=== PATIENT | female | born 1960 | race African-American/Black ===

== ENCOUNTER 2020-08-29 14:19 | Inpatient (IN) | payer MEDICARE ==
[~2020-08-29 14:19] MED LIST: ALEVE220 MG PO; CLEOCIN300 MG PO; NEURONTIN400 MG PO; VITAMIN D5000 UNIT PO
[2020-08-29 17:07] LABS: BASOPHIL 0.5 % (0-2); EOSINOPHIL 1.6 % (0-5); HCT 38.4 % (37.0-47.0); HGB 12.2 g/dl (12.5-16.0); LYMPHOCYTE 31.3 % (15-48); MCH 28.4 pg (25.0-31.0); MCHC 31.8 g/dL (32.0-36.0); MCV 89.5 fL (78.0-100.0); MONOCYTE 7.6 % (0-12); MPV 12.7 fL (6.0-9.5); NEUTROPHIL 58.7 % (41-80); NRBC 0; PLT 147 K/uL (150-400); RBC 4.29 M/uL (4.20-5.40); RDW 15.5 % (11.5-14.0); WBC 6.2 K/uL (4.0-10.5)
[2020-08-29 17:18] LABS: BUN/CREAT RATIO (CALC) 24.7 RATIO; CREATININE 0.73 mg/dL (0.51-0.95); POTASSIUM 4.1 mmol/L (3.5-5.1)
[2020-08-29 20:33] LABS: INFLUENZA A NAA NEGATIVE (NEGATIVE)
[2020-08-29 20:37] LABS: CORONAVIRUS 2019 SARS-COV-2 POSITIVE (NEGATIVE)
[2020-08-29] MEDS ORDERED: XARELTO10 MG PO (21:02)
--- NOTE | 2020-08-29 22:26 | NUR ---
PT ARRIVED TO UNIT AT 2029, NO S/S DISTRESS NOTED, TELEMETRY STRIP: 0.12 0.08 HR 81
[2020-08-30 05:54] LABS: BASOPHIL 0.8 % (0-2); EOSINOPHIL 2.7 % (0-5); HCT 38.4 % (37.0-47.0); HGB 12.1 g/dl (12.5-16.0); LYMPHOCYTE 36.1 % (15-48); MCH 28.1 pg (25.0-31.0); MCHC 31.5 g/dL (32.0-36.0); MCV 89.3 fL (78.0-100.0); MONOCYTE 9.1 % (0-12); NEUTROPHIL 51.1 % (41-80); NRBC 0; PLT 140 K/uL (150-400); RDW 15.6 % (11.5-14.0); WBC 5.3 K/uL (4.0-10.5)
[2020-08-30 06:22] LABS: ALBUMIN 2.9 g/dL (3.4-5.0); BILIRUBIN - TOTAL 0.3 mg/dL (0.2-1.0); BUN/CREAT RATIO (CALC) 26.6 RATIO; CREATININE 0.64 mg/dL (0.51-0.95); POTASSIUM 4.1 mmol/L (3.5-5.1); TOTAL PROTEIN 6.9 g/dL (6.4-8.2)
--- NOTE | 2020-08-30 10:53 | NUR ---
08/30/20 Ms. Flores lives alone. She was independent in the home and community prior to admission. She works at [employer]. Ms. Flores has a rw (doesn't use) and 02 at 2 L which she uses prn. Will monitor for any dc planning needs.
--- NOTE | 2020-08-30 11:22 | NUR ---
Insurance submitted to [facility], tracking ID this date [id number] ref# [id number]
[2020-08-30] MEDS ORDERED: GABAPENTIN800 MG PO (18:34)
[2020-08-30] MEDS ORDERED: ELIQUIS5 MG PO (18:35)
[2020-08-31 06:13] LABS: BUN/CREAT RATIO (CALC) 23.9 RATIO; CREATININE 0.71 mg/dL (0.51-0.95)
[2020-08-31 06:22] LABS: BASOPHIL 0.5 % (0-2); EOSINOPHIL 1.7 % (0-5); HCT 35.4 % (37.0-47.0); HGB 11.3 g/dl (12.5-16.0); LYMPHOCYTE 31.1 % (15-48); MCH 28.4 pg (25.0-31.0); MCHC 31.9 g/dL (32.0-36.0); MCV 88.9 fL (78.0-100.0); MONOCYTE 8.4 % (0-12); MPV 13.1 fL (6.0-9.5); NEUTROPHIL 57.8 % (41-80); NRBC 0; PLT 138 K/uL (150-400); RBC 3.98 M/uL (4.20-5.40); RDW 15.5 % (11.5-14.0); WBC 5.9 K/uL (4.0-10.5)
[2020-08-31] MEDS ORDERED: HCTZ12.5 MG PO (11:05)
--- NOTE | 2020-08-31 18:10 | NUR ---
PT ON ARRIVED TO FLOOR AT [address] OF W/C. PT CONTINUES TO BE IN ISOLATION FOR COVID+. WHEN NURSE ENTERED ROOM FOR EVAL OF PT, PT WAS ON PHONE AND DID NOT WANT TO BE BOTHERED AT THIS TIME. PT ON R/A, SITTING ON SIDE OF BED TALKING WITH FAMILY.
--- NOTE | 2020-09-01 12:09 | NUR ---
09/01/20 Dr. Gaffney has order Eliquis 5mg, 2 times per day, for 4 days to be taken in addition to her regular dose. Ms. Flores reports to have the extra doses from the medications at home which she was not taking while hospitalized. A report was given to Dr. Gaffney and MS SAM Fields.
[2020-09-01] MEDS ORDERED: DICLOFENAC PO (15:33)
--- NOTE | 2020-09-01 16:51 | NUR ---
DISCUSSED DISCHARGE INSTRUCTIONS WITH PATIENT. PATIENT IN STABLE CONDITION. D/C HOME
== END 2020-09-01 16:15 | disposition home or self-care (01) | DRG 175 ==
LOC: FER 14:19 → FIS 14:19 → FMS 19:45 → FTCU 19:45 → FMS 08-31 13:49
PROVIDERS: Internal Medicine; Nurse Practitioner; Nurse Practitioner Family; ADMIT Hospitalist
PROC: 8E0ZXY6 Isolation (ICD-10-PCS; principal; 2020-08-29)
DX: I26.99 Other pulmonary embolism without acute cor pulmonale (principal); U07.1 COVID-19; D68.59 Other primary thrombophilia; I82.412 Acute embolism and thrombosis of left femoral vein; Z68.44 Body mass index [BMI] 60.0-69.9, adult; E66.01 Morbid (severe) obesity due to excess calories; Z96.653 Presence of artificial knee joint, bilateral; Z90.710 Acquired absence of both cervix and uterus; Z90.49 Acquired absence of other specified parts of digestive tract; Z98.890 Other specified postprocedural states; Z86.16 Personal history of COVID-19
CPT/HCPCS: 36415; 71275; 80048; 80053; 85025; 93971; 94010; 94760; J1650; Q9967; U0002

== ENCOUNTER 2020-11-06 17:10 | Emergency (ER) | payer MEDICARE ==
[~2020-11-06 17:10] MED LIST changes: +DICLOFENAC PO; +ELIQUIS5 MG PO; +GABAPENTIN800 MG PO; +HCTZ12.5 MG PO; +XARELTO10 MG PO
== END 2020-11-06 22:23 | disposition home or self-care (01) ==
LOC: FER 17:10
DX: M25.571 Pain in right ankle and joints of right foot (principal); Z86.718 Personal history of other venous thrombosis and embolism; Z79.01 Long term (current) use of anticoagulants; Z88.5 Allergy status to narcotic agent
CPT/HCPCS: 93971

== ENCOUNTER 2021-11-16 16:56 | Emergency (ER) | payer MEDICARE ==
[2021-11-16 18:05] LABS: BASOPHIL 0.5 % (0-2); EOSINOPHIL 2.6 % (0-5); HCT 35.7 % (37.0-47.0); HGB 11.2 g/dl (12.5-16.0); LYMPHOCYTE 29.6 % (15-48); MCH 27.7 pg (25.0-31.0); MCHC 31.4 g/dL (32.0-36.0); MCV 88.1 fL (78.0-100.0); MONOCYTE 7.1 % (0-12); NRBC 0; PLT 144 K/uL (150-400); RBC 4.05 M/uL (4.20-5.40); RDW 16.6 % (11.5-14.0); WBC 5.8 K/uL (4.0-10.5)
[2021-11-16 18:09] LABS: INR 1.03 (0.9-1.2); PROTHROMBIN TIME 13.2 SECONDS (11.9-13.9)
[2021-11-16 18:20] LABS: ALBUMIN 2.6 g/dL (3.4-5.0); BILIRUBIN - TOTAL 0.3 mg/dL (0.2-1.0); BUN/CREAT RATIO (CALC) 19.2 RATIO; CREATININE 0.73 mg/dL (0.51-0.95); GLOBULIN (CALCULATION) 3.8 g/dL; POTASSIUM 3.9 mmol/L (3.5-5.1); TOTAL PROTEIN 6.4 g/dL (6.4-8.2)
== END 2021-11-16 19:35 | disposition home or self-care (01) ==
LOC: FER 16:56
PROVIDERS: Physician Assistant
DX: R07.89 Other chest pain (principal); E66.9 Obesity, unspecified; Z88.5 Allergy status to narcotic agent
CPT/HCPCS: 36415; 80053; 84484; 85025; 85610; 93005